=== PATIENT | male | born 1955 | race Caucasian/White ===

== ENCOUNTER 2023-12-13 07:59 | Outpatient (OUT) | payer MEDICARE, SELFPAY ==
--- NOTE | 2023-12-13 08:55 | ECG_ITS ---
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
[2023-12-13 09:32] LABS: Basophils Absolute Auto 0.1 10^3/uL (0.0-0.1); Basophils Percent Auto 0.9 % (0.2-2.0); Eosinophils Absolute Auto 0.3 10^3/uL (0.0-0.7); Eosinophils Percent Auto 4.5 % (0.9-7.0); Hematocrit 46.5 % (42.0-54.0); Immature Granulocytes Abs Auto 0.02 10^3/uL (0.00-0.03); Immature Granulocytes Pct Auto 0.3 % (0.0-0.5); Lymphocytes Absolute Auto 1.1 10^3/uL (1.2-3.8); Lymphocytes Percent Auto 15.9 % (20.5-60.0); Mean Corpuscular HGB Conc 34.4 g/dL (29.9-35.2); Mean Corpuscular Hemoglobin 32.3 pg (25.9-34.0); Mean Corpuscular Volume 93.9 fL (80.0-94.0); Mean Platelet Volume 9.1 fL (9.5-13.5); Monocytes Absolute Auto 0.6 10^3/uL (0.3-0.8); Monocytes Percent Auto 8.7 % (1.7-12.0); Neutrophils Absolute Auto 4.8 10^3/uL (1.4-6.5); Neutrophils Percent Auto 69.7 % (43.0-75.0); Platelet Count 280 10^3/uL (150-450); Red Blood Count 4.95 10^6/uL (4.70-6.10); Red Cell Distribution Width 13.2 % (11.0-15.0); White Blood Count 6.9 10^3/uL (4.0-11.0)
[2023-12-13 09:51] LABS: Anion Gap 11.9; Calcium 9.3 mg/dL (8.5-10.1); Carbon Dioxide 28.1 mmol/L (21.0-32.0); Chloride 106 mmol/L (98-107); Estimated GFR (African America >60 (>=60); Estimated GFR (Non-African Ame >60 (>=60); Glucose 103 mg/dL (74-106); Sodium 142 mmol/L (136-145)
== END 2023-12-13 08:00 | disposition home or self-care (01) ==
LOC: PST 08:05
PROVIDERS: Anesthesiology; PCP Nurse Practitioner; Visit Provider Otolaryngology
DX: Z01.810 Encounter for preprocedural cardiovascular examination (principal); Z01.812 Encounter for preprocedural laboratory examination; H69.91 Unspecified Eustachian tube disorder, right ear
CPT/HCPCS: 36415; 80048; 85025; 93005

== ENCOUNTER 2023-12-31 10:54 | Day surgery (SDC) | payer MEDICARE, SELFPAY ==
[2023-12-13 08:58] VITALS: BP 128/87; PULSE 63; TEMP 36.2; O2SAT 96; BMI 27.2
[2023-12-31] VITALS (10 sets, daily range): BP systolic 96–134; BP diastolic 60–93; PULSE 60–76; TEMP 36.1–36.3; O2SAT 91–97; BMI 27.1
--- NOTE | 2023-12-31 | OP_ITS ---
OPERATION DATE: 12/31/2023 PRIMARY CARE PROVIDER: Alicia Bundy CNP SURGEON: Kristal Smith M.D. PREOPERATIVE DIAGNOSIS: Right eustachian tube dysfunction. POSTOPERATIVE DIAGNOSIS: Right eustachian tube dysfunction. PROCEDURE: Right myringotomy and tube with microdissection, placement of a T- tube. ANESTHESIA: General LMA. COMPLICATIONS: None. FINDINGS: Right serous effusion. INDICATIONS: This 68-year-old man presented with otitis media with effusion, unresponsive to aggressive medical management. PROCEDURE: Patient identified in the holding area and taken back to the OR where he was placed in the supine position. After induction of general anesthesia by LMA, the right ear was approached with the otomicroscope. Cerumen was cleaned from the canal using a cerumen curette and an anterior radial myringotomy was performed. A modified Royce?s T-tube was folded and inserted through the myringotomy and opened in the middle ear using microdissection. Patient was then awakened and taken to the recovery room in good condition. CECILIA
--- OUTSIDE RECORDS SUMMARY | 2023-12-31 11:07 | XMS_ITS | CCD ---
Author Organization [facility] Care Team Providers Care Wet Process Miller Head Assistant Name Role Phone PAVLOCK, MAX Unavailable Unavailable PAVLOCK, MAX Unavailable Unavailable MISC, DOCTOR Unavailable Unavailable PAVLOCK, MAX Unavailable Unavailable PAVLOCK, MAX Unavailable Unavailable PAVLOCK, MAX Unavailable Unavailable PAVLOCK, MAX Unavailable Unavailable Unavailable Primary Care Provider UnavailErica Boateng Primary Care Provider ERICA BUNDY Primary Care Unavailable SARAH BARAJAS Attending Unavailable SARAH BARAJAS Admitting Unavailable ERICA BUNDY Primary Care Unavailable SARAH BARAJAS Attending Unavailable KARL, SARAH T Admitting Unavailable COLE ZAFAR Attending Unavailable COLE ZAFAR Admitting Unavailable KARL, SARAH Pau Admitting Unavailable ERICA BUNDY Primary Care Unavailable KARL, SARAH T Attending Unavailable DENIS LOJA Referring Unavailable ERICA BUNDY Primary Care Unavailable DENIS LOJA Referring Unavailable ERICA BUNDY Primary Care Unavailable DENIS LOJA Referring Unavailable ERICA BUNDY Primary Care Unavailable MD Bianca James Attending Provider Bianca James Unavailable Gregor QUOTER-Erica SELBY Primary Care Provid er ERICA BUNDY Attending Unavailable ERICA BUNDY Referring Unavailable ERICA BUNDY Primary Care Unavailable FREDERIC YU Attending Unavailable ERICA BUNDY Referring Unavailable KRISTAL AKINS Attending Unavailable KRISTAL AKINS Attending Unavailable Bianca James Admitting Unavailable Bianca James Attending Unavailable Medications Current Medications Medication Drug Class(es) Dates Sig (Normalized) Sig (Original) acetaminophen 500 mg oral tablet (8 sources) acetaminophen (T YLENOL) 500 mg tablet Take 1 tablet (500 mg total) by mouth. 0 Active take 2 tablets by [facility] every six hours as needed acetaminophen (TYLENOL) 500 MG tablet Ta ke 500 mg by mouth every 6 hours as needed for Pain (1-2 TABLETS) 0 Active acetaminophen 325 mg / oxyCODONE hydrochloride 5 mg oral tablet (1 source) Opioid Agonist Start: 01-26-2020 oxyCODONE-acetaminophen (PERCOCET) 5-325 MG per tablet 1 tablet amLODIPine 5 mg oral tablet (5 sources) Dihydropyridine Calcium Channel Quynh Start: 05-14-2023 End: 10-01-2023 take 1 tablet by mouth in the morning amLODIPine (NORVASC) 5 mg tablet Indications: Essential hypertension Take 1 tablet (5 mg total) by mouth in the morning. 90 tablet 1 10/01/2023 Active ascorbic acid 60 mg / beta carotene 5000 unt / copper sulfate 40 mg / dl-alpha tocopheryl acetate 30 unt / sodium selenite 0.04 mg / zinc oxide 40 mg oral tablet (4 sources) Vitamin C take 1 tablet by mouth once daily Multiple Vitamins-Minerals (THERAPEUTIC MULTIVITAMIN-MINERALS) tablet Take 1 tablet by mouth daily MEN'S FORMULA 0 Active ascorbic acid 113 mg / beta carotene 7160 mg / cuprous oxide 0.4 mg / dl-alpha tocopheryl acetate 100 unt / zinc oxide 17.4 mg oral tablet (2 sources) Vitamin C PreserVision ARE DS - as directed Orally Active calcium chloride 0.0014 meq/ml / potassium chloride 0.004 meq/ml / sodium chloride 0.103 meq/ml / sodium lactate 0.028 meq/ml injectable solution (5 sources) Start: 06-09-2020 lactated ringers infusion Start: 01-26-2020 lactated ringe rs infusion Start: 12-10-2019 lactated ringe rs infusion Start: 11-03-2019 End: 11-03-2019 lactated ringers infusion carboxymethylcellulose sodiu m 10 mg/ml ophthalmic solution (8 sources) carboxymethylcel lulose sodium (ARTIFICIAL TEARS, CMC,) 1 % drops Instill 1 drop to eye. 0 Active Carboxymethylcel lulose Sodium (ARTIFICIAL TEARS OP) Apply 1 drop to eye as needed BILATERAL EYES 0 Active Diclofenac (2 sources) Nonsteroidal Anti-inflammatory Drug Start: 05-15-2023 Voltaren 1 % apply 1-2 grams to affected area Externally twice a day for 30 days May, Active 1 ml diphenhydrAMINE hydrochloride 50 mg/ml cartridge (1 source) Histamine-1 Receptor Antagonist Start: 01-26-2020 End: 01-26-2020 diphenhydrAMINE (BENADRYL) injection 12.5 mg 2 ml fentaNYL 0.05 mg/ml injection (7 sources) Opioid Agonist Start: 06-09-2020 fentaNYL (SUBLIMAZE) injection 25 mcg Start: 01-26-2020 fentaNYL (SUBL IMAZE) injection 25 mcg Start: 01-26-2020 fentaNYL (SUBL IMAZE) injection 50 mcg Start: 12-10-2019 fentaNYL (SUBL IMAZE) injection 50 mcg Start: 12-10-2019 fentaNYL (SUBL IMAZE) injection 25 mcg fluticasone propionate 0.05 mg/actuat metered dose nasal spray (3 sources) Corticosteroid Start: 08-27-2021 End: 10-01-2023 take 2 spray(s) nasal route once daily fluticasone propionate (FLONASE) 50 mcg/actuation nasal spray Indications: Allergic rhinitis, unspecified seasonality, unspecified trigger SPRAY 2 SPRAYS INTO EACH NOSTRIL EVERY DAY 16 mL 12 10/01/2023 Active 1 ml hydrALAZINE hydrochloride 20 mg/ml injection (1 source) Arteriolar Vasodilator Start: 01-26-2020 hydrALAZINE (APRESOLINE) injection 5 mg hydroCHLOROthiazide 12.5 mg / lisinopril 20 mg oral tablet (12 sources) Thiazide Diuretic, Angiotensin Converting Enzyme Inhibitor Start: 05-14-2023 End: 10-01-2023 take 1 tablet by mouth once daily lisinopril-hydroC HLOROthiazide (PRINZIDE,ZESTORE TIC) 20-12.5 mg per tablet Indications: Essential hypertension TAKE 1 TABLET BY MOUTH EVERY DAY 90 tablet 1 10/01/2023 Active Start: 09-17-2019 take 1 tablet by [place]orence th once daily lisinopril-hydroCHLOROthiazide (PRINZIDE;ZESTORETIC) 10-12.5 MG per tablet Take 1 tablet by mouth daily 0 09/17/2019 Active 4 ml labetalol hydrochloride 5 mg/ml cartridge (1 source) beta-Adrenergic Quynh Start: 01-26-2020 labetalol (NORMODYNE;TRANDATE) injection 5 mg 10 ml lidocaine hydrochloride 10 mg/ml injection (1 source) Antiarrhythmic, Amide Local Anesthetic Start: 06-09-2020 End: 06-09-2020 lidocaine PF 1 % injection 1 mL 1 ml meperidine hydrochloride 50 mg/ml injection (1 source) Opioid Agonist Start: 12-10-2019 meperidine (DEMEROL) injection 12.5 mg 2 ml midazolam 1 mg/ml injection (2 sources) Benzodiazepine Start: 06-09-2020 midazolam PF (VERSED) injection 1 mg Start: 11-03-2019 End: 11-03-2019 midazolam (VERSED) injection 2 mg Multiple Vitamins-Minerals (THERAPEUTIC MULTIVITAMIN-MINERALS) tablet (2 sources) take 1 tablet by mouth once daily Multiple Vitamins-Minerals (THERAPEUTIC MULTIVITAMIN-MINERALS) tablet Take 1 tablet by mouth daily MEN'S FORMULA 0 Active multivit with minerals/lutein (MULTIVITAMIN 50 PLUS ORAL) (2 sources) multivit with minerals/lutein (MULTIVITAMIN 50 PLUS ORAL) Take 1 tablet by mouth. 0 Active NONFORMULARY (6 sources) take 1 tablet by mouth once daily at lunch NONFORMULARY Take 1 tablet by mouth Daily with lunch EYE PROMISE, EYE SUPPLEMENT 0 Active nystatin 100 unt/mg / triamcinolone acetonide 0.001 mg/mg topical ointment (3 sources) Polyene Antifungal, Corticosteroid Star t: 04-08 End: 09-06 nystatin-triamcinolone (MYCOLOG II) ointment Indications: Fungal skin infection Apply 1 Application topically in the morning and 1 Application before bedtime. 30 g 1 10/01/2023 Active 2 ml ondansetron 2 mg/ml injection (2 sources) Serotonin-3 Receptor Antagonist Star t: 01-06 20 End: 01-06 ondansetron (ZOFRAN) injection 4 mg Start: 12-10-2019 End: 12-10-2019 ondansetron (ZOFRAN) injecti on 4 mg One A Day Mens VitaCraves - (2 sources) One A Day Mens VitaCraves - as directed Orally Active 1 ml promethazine hydrochloride 25 mg/ml injection (1 source) Phenothiazine Start: 07-21-20 20 End: 01-26-20 20 promethazine (PHENERGAN) injection 6.25 mg simvastatin 20 mg oral tablet (12 sources) HMG-CoA Reductase Inhibitor Start: 09-17-19 20 End: 10-01-19 24 take 1 tablet by mouth in the morning simvastatin (ZOCOR) 20 mg tablet Indications: Mixed hyperlipidemia Take 1 tablet (20 mg total) by mouth in the morning. 90 tablet 2 10/01/2023 Active 3 ml sodium chloride 9 mg/ml injection (5 sources) Start: 06-09-20 20 sodium chloride flush 0.9 % injection 10 mL Start: 01-26-2020 End: 01-26-2020 0.9 % sodium chloride bolus Start: 11-03-2019 sodium chlorid e flush 0.9 % injection 10 mL vit C,P-Yk-lskhp-lutein-zeax an (PRESERVISION AREDS-2) 250-90-40-1 mg capsule (2 sources) vit C,E-Zn-coppr -lutein-zeaxan (PRESERVISION AREDS-2) 250-90-40-1 mg capsule Take by mouth in the morning and at bedtime. 0 Active Completed/Discontinued Medications Medication Drug Class(es) Dates Sig (Normalized) Sig (Original) balanced salts plus (BSS) 500 mL (1 source) Start: 06-09-2020 End: 06-09-2020 balanced salts plus (BSS) 500 mL Bupivacaine / Lidocaine (1 source) Antiarrhythmic, Amide Local Anesthetic Start: 06-09-2020 End: 06-09-2020 bupivacaine (PF) (MARCAINE) 2.5 mL, lidocaine PF 2 % 2.5 mL cefTAZidime 1000 mg injection (1 source) Cephalosporin Antibacterial Start: 06-09-2020 End: 06-09-2020 cefTAZidime (FORTAZ) injection cyclopentolate hydrochloride 20 mg/ml ophthalmic solution (3 sources) Start: 06-09-2020 End: 06-09-2020 cyclopentolate (CYCLOGYL) 2 % ophthalmic solution Start: 06-09-2020 End: 06-09-2020 cyclopentolate (CYCLOGYL) 2 % ophthalmic solution 1 drop Start: 11-03-2019 End: 11-03-2019 cyclopentolate (CYCLOGYL) 1 % ophthalmic solution 1 drop dexamethasone 1 mg/ml / tobramycin 3 mg/ml ophthalmic suspension (2 sources) Aminoglycoside Antibacterial, Corticosteroid Start: 06-09-2020 End: 06-09-2020 tobramycin-dexamethasone (TOBRADEX) ophthalmic suspension 1 drop Start: 01-26-2020 End: 01-26-2020 tobramycin-dexamethasone (TO BRADEX) ophthalmic suspension 1 drop gentamicin 3 mg/ml / prednisoLONE acetate 10 mg/ml ophthalmic suspension (2 sources) Corticosteroid Start: 12-10-2019 End: 12-10-2019 gentamicin-prednisoLONE 0.3- 1 % ophthalmic drops 1 drop Start: 11-03-2019 End: 11-03-2019 gentamicin-prednisoLONE 0.3- 1 % ophthalmic drops 1 drop phenylephrine hydrochloride 100 mg/ml ophthalmic solution (4 sources) alpha-1 Adrenergic Agonist Start: 06-09-2020 End: 06-09-2020 phenylephrine (ANALILIA-SYNEPHRINE) 10 % ophthalmic solution 1 drop Start: 01-26-2020 End: 01-26-2020 phenylephrine (ANALILIA-SYNEPHRIN E) 10 % ophthalmic solution 1 drop Start: 12-10-2019 End: 12-10-2019 phenylephrine (ANLAILIA-SYNEPHRIN E) 10 % ophthalmic solution 1 drop Start: 11-03-2019 End: 11-03-2019 phenylephrine (MYDFRIN) 2.5 % ophthalmic solution 1 drop tropicamide 10 mg/ml ophthalmic solution (2 sources) Anticholinergic Start: 01-26-2020 End: 01-26-2020 tropicamide (MYDRIACYL) 1 % ophthalmic solution 1 drop Start: 12-10-2019 End: 12-10-2019 tropicamide (MYDRIACYL) 1 % ophthalmic solution 1 drop Problems Active Problems Problem Classification Problem Date Documented Date Episodic/Chronic Conduction disorders (2 sources) Sinus node dysfunction; Translations: [Other specified heart block] Onset: 11-03-2020 11-03-2020 Chronic Disorders of lipid metabolism (7 sources) Hyperlipidemia, unspecified; Translations: [Mixed hyperlipidemia] Onset: 11-04-2017 03-19-2019 Chronic Esophageal disorders (2 sources) Gastroesophageal reflux disease without esophagitis; Translations: [Gastro-esophageal reflux disease without esophagitis] Onset: 06-16-2018 06-16-2018 Chronic Essential hypertension (3 sources) Essential hypertension; Translations: [Essential (primary) hypertension] Onset: 06-09-2018 06-09-2018 Chronic Mycoses (1 source) Dermal mycosis; 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, unspecified] 10-01-2023 Episodic Osteoarthritis (4 sources) Arthritis of right wrist; Translations: [Primary osteoarthritis, right wrist] Chronic Other ear and sense organ disorders (1 source) Hearing finding; Translations: [Other specified hearing loss, bilateral] 07-22-2023 Chronic Other nervous system disorders (2 sources) Carpal tunnel syndrome; Translations: [Carpal tunnel syndrome, unspecified upper limb] Chronic Other upper respiratory disease (1 source) Allergic rhinitis; Translations: [Allergic rhinitis, unspecified] 10-01-2023 Chronic Unclassified (1 source) Encounter for screening for malignant neoplasm of prostate; Translations: [ENC SCREEN MALIG NEOPLASM PROSTATE] Onset: 11-07-2017 Episodic Unclassified (1 source) Patient encounter status; Translations: [Preoperative testing] Unclassified (1 source) Annual Exam Onset: 11-13-2023 Past or Other Problems Problem Classification Problem Date Documented Da te Episodic/Chronic Mood disorders (2 sources) Mood disorders Onset: 05-14-2023 05-14-2023 Other eye disorders (10 sources) Vitreous hemorrhage, right eye; Translations: [Hemorrhage of right vitreous body] Onset: 11-03-2019 Resolved: 2022 11-03-2019 Chronic Other non-traumatic joint disorders (3 sources) Pain in right wrist; Translations: [Pain in right wrist] Onset: 05-15-2023 Episodic Other nutritional; endocrine; and metabolic disorders (2 sources) Body mass index 25-29 - overweight; Translations: [Overweight] Onset: 09-17-2019 09-17-2019 Episodic Retinal detachments; defects; vascular occlusion; and retinopathy (19 sources) Retinal detachment with retinal defect; Translations: [Traction retinal detachment involving macula] Onset: 11-03-2019 11-03-2019 Episodic Unclassified (2 sources) Onset: 05-14-2023 05-14-2023 Results Test Name Value Interpretation Reference Range Facility XR wrist RT min 3V*on 2022 XR wrist RT min 3V* [facility] [place] [address] [place] [id number] XRay Report Signed Patient: Uriel Newton MR#: [id number] : 1955 Acct:[id number] Age/Sex: 67 / M ADM Date: 05/15/23 Loc: SOXD Room: Type: [facility] Attending Dr: Bianca James MD Copies to: Bianca James MD Ordering Provider: Bianca James MD Date of Service: 05/15/23 XR/XR wrist RT min 3V*: M25.531 4 views right wrist plain film COMPARISON: None HISTORY: Status post right wrist and numbness. Radiation into the fingers. Decreased adequate strength ACUTE FINDINGS: None DEGENERATIVE CHANGE: The distal radius and scaphoid joint space narrowing. Potential scapholunate dissociation. Narrowing of the capitate and lunate articulation. Potential DISI deformity. Limited lateral view widening of distal radial clear space. SOFT TISSUE FINDINGS: Unremarkable JOINT EFFUSION: None POSTOP CHANGES: None BONE MINERALIZATION: Adequate XR/XR wrist RT min 3V* IMPRESSION: Radius and scaphoid joint space narrowing with suspected scapholunate dissociation. Capitate and lunate joint space narrowing. potential DISI deformity. Widening of the distal radial ulnar articulation. Impression dictated by: Matthias Polanco M.D.05/15/2023 7:24 PM Dictation Location: [place] [address] Transcribed By: [facility] 05/15/231923 Dictated By: Matthias Polanco DO 05/15/231913 Signed By: 05/15/231923 Normal [facility] COVID-19 Ambulatoryon 2019 SARS-CoV-2, JOSE Not Detected Not Detected [place], [place] Comment on above: (NOTE) This nucleic acid amplification test was developed and its performance characteristics determined by [employer]. Nucleic acid amplification tests include PCR and TMA. This test has not been FDA cleared or approved. This test has been authorized by FDA under an Emergency Use Authorization (EUA). This test is only authorized for the duration of time the declaration that circumstances exist justifying the authorization of the emergency use of in vitro diagnostic tests for detection of SARS-CoV-2 virus and/or diagnosis of COVID-19 infection under section 564(b)(1) of the Act, 21 U.S.C. 360bbb-3(b) (1), unless the authorization is terminated or revoked sooner. When diagnostic testing is negative, the possibility of a false negative result should be considered in the context of a patient's recent exposures and the presence of clinical signs and symptoms consistent with COVID-19. An individual without symptoms of COVID- 19 and who is not shedding SARS-CoV-2 virus would expect to have a negative (not detected) result in this assay. Performed At: [facility] [address] [facility] [place] [id number] Emily Arias MD Ph:[phone] Creatinine W/GFR Point of Ca reon 06-09-2020 Creatinine [Mass/Vol] 0.96 mg/dL 0.51 - 1.19 mg/dL [place], [place] GFR Non- >60 >60 mL/min [place] GFR/1.73 sq M predicted among non-blacks MDRD (S/P/Bld) [Vol rate/Area] mL/min/{1.73_m2} >60 mL/min [place] GFR/1.73 sq M predicted among non-blacks MDRD (S/P/Bld) [Vol rate/Area] [place], [place] Comment on above: Average GFR for 60-6 9 years old: 85 mL/min/1.73sq m Chronic Kidney Disease: <60 mL/min/1.73sq m Kidney failure: <15 mL/min/1.73sq m eGFR calculated using average adult body mass. Additional eGFR calculator available at: http://www.[employer].EndorphMe/multiple_crcl_2012.htm POCT Glucoseon 06-09-2020 Glucose [Mass/Vol] 105 mg/dL High 74 - 100 mg/dL [place], [place] Interpretation and review of laboratory results Abnormal [place] [id number] 06-09-2020 SARS-CoV-2 Not Detected Normal Not Detected [facility] Comment on above: Result Comment: (NOT E) This nucleic acid amplification test was developed and its performance characteristics determined by [employer]. Nucleic acid amplification tests include PCR and TMA. This test has not been FDA cleared or approved. This test has been authorized by FDA under an Emergency Use Authorization (EUA). This test is only authorized for the duration of time the declaration that circumstances exist justifying the authorization of the emergency use of in vitro diagnostic tests for detection of SARS-CoV-2 virus and/or diagnosis of COVID-19 infection under section 564(b)(1) of the Act, 21 U.S.C. 360bbb-3(b) (1), unless the authorization is terminated or revoked sooner. When diagnostic testing is negative, the possibility of a false negative result should be considered in the context of a patient's recent exposures and the presence of clinical signs and symptoms consistent with COVID-19. An individual without symptoms of COVID- 19 and who is not shedding SARS-CoV-2 virus would expect to have a negative (not detected) result in this assay. Performed At: [facility] [address] [facility] [place] [id number] Emily Arias MD Ph:[phone] Performed By: #### A COV #### [facility] [address] [place] [address] Sail Repairer: Antoni Escobar MD Creatinine W/GFR Point of Ca reon 01-26-2020 Creatinine [Mass/Vol] 0.96 mg/dL 0.51 - 1.19 mg/dL [place], [place] GFR Non- >60 >60 mL/min [place] GFR/1.73 sq M predicted among non-blacks MDRD (S/P/Bld) [Vol rate/Area] mL/min/{1.73_m2} >60 mL/min [place] GFR/1.73 sq M predicted among non-blacks MDRD (S/P/Bld) [Vol rate/Area] [place], [place] Comment on above: Average GFR for 60-6 9 years old: 85 mL/min/1.73sq m Chronic Kidney Disease: <60 mL/min/1.73sq m Kidney failure: <15 mL/min/1.73sq m eGFR calculated using average adult body mass. Additional eGFR calculator available at: http://www.Xamplified.EndorphMe/multiple_crcl_2012.htm OPERATIVE REPORTon 0 OPERATIVE REPORT [address] [id number] OPERATIVE REPORT PATIENT NAME: URIEL NEWTON : 1955 MED REC NO: [id number] ROOM: ACCOUNT NO: [id number] ADMIT DATE: 01/26/2020 PROVIDER: Sarah Barajas DATE OF PROCEDURE: 01/26/2020 PREOPERATIVE DIAGNOSES: 1. 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 2. Severe macular pucker, right eye. 3. Advancing cataract, right eye. POSTOPERATIVE DIAGNOSES: 1. 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 2. Severe macular pucker, right eye. 3. Advancing cataract, right eye. PROCEDURES: Pars plana vitrectomy with extensive membrane peeling, retinotomies, endolaser, and silicone; right eye. ANESTHESIA: Monitored. SURGEON: Sarah Barajas MD REASON FOR OPERATION: The patient is a 64-year-old gentleman with recurrent retinal detachment due to proliferative vitreoretinopathy. The macula has detached. He has had 2 previous operations with macula-off, one 3 months ago and another approximately 6 weeks ago. He has elected to undergo surgery in the hopes of stabilizing his vision. He understands his eventual visual recovery will be limited and will take 6-12 months. He understands the risks include, but are not limited to, bleeding, infection, and recurrent retinal detachment. He understands he will need cataract surgery at some point in the future. DESCRIPTION OF PROCEDURE: The patient was brought to the operating room in good condition. He was administered local anesthetic and prepped and draped in the usual fashion. 23-gauge vitrectomy trocars were placed through the pars plana in the usual quadrants. An inferotemporal trocar was not placed, so there were only 2 trocars. Light pipe and forceps were placed in the eye. There was a dense macular pucker, and this was peeled without difficulty. There were a few small epiretinal membranes in the midperiphery, and these were peeled. Scleral depression showed there was anterior traction with a hole at 5 o'clock posterior to the vitreous base. This anterior traction was present from 4 o'clock around to 7 o'clock. These areas were diathermized, and a retinotomy was created with the ocutome, basically removing all the area of traction. There was an area at 6 o'clock that was still attached with laser, and this was not peeled. A retinotomy was created below the optic disc with intraocular diathermy. Subretinal fluid was aspirated with silicone-tipped extrusion. Silicone was then placed into the eye to reestablish normal intraocular pressure. Extrusion was used to remove any fluid over the optic nerve head. This reattached the retina nicely. Endolaser was placed around all retinotomies. Endolaser was placed behind previous laser from 2 o'clock around to 10 o'clock. At least two rows of laser were placed in these areas. There were moderate pigment changes in the macula, but no residual membrane seen. The trocars were removed, and the sites were closed with interrupted 7-0 Vicryl. 50 mg ceftazidime were injected sub-Tenon's in the inferonasal quadrant. The eye was patched in the usual fashion. The patient was taken to the recovery room in good condition. SARAH BARAJAS JACQUELINE/[id number] Doc#: [id number] CC: Normal [facility] POCT Glucoseon 01-26-2020 Glucose [Mass/Vol] 104 mg/dL High 74 - 100 mg/dL [place], [place] Interpretation and review of laboratory results Abnormal [place], [place] COVID-19on 01-23-2020 SARS-CoV-2 Not Detected Not Detected [place], [place] Comment on above: The specimen is NEGATIVE for SARS-CoV-2, the novel coronavirus associated with COVID-19. A negative result does not rule out COVID-19. This test has been authorized by the FDA under an Emergency Use Authorization (EUA) for use by authorized laboratories. Fact sheet for Healthcare Providers: https://www.fda.gov/media/788913/download Fact sheet for Patients: https://www.fda.gov/media/095005/download METHODOLOGY: RT[facility]PCR [facility] [place] [place] SARS-CoV-2, Rapid [facility] [place] Source .NASOPHARYNGEAL SWAB [place], [place] [id number] 01-23-2020 SARS-CoV-2 Not Detected Normal [facility] Comment on above: Result Comment: The specimen is NEGATIVE for SARS-CoV-2, the novel coronavirus associated with COVID-19. A negative result does not rule out COVID-19. This test has been authorized by the FDA under an Emergency Use Authorization (EUA) for use by authorized laboratories. Fact sheet for Healthcare Providers: https://www.fda.gov/media/139282/download Fact sheet for Patients: https://www.fda.gov/media/940528/download METHODOLOGY: RT-PCR Performed By: #### C OVID #### [address] [address] Sail Repairer: Marbin Sellers MD [address] [place] [address] Sail Repairer: Royce Hernandez MD SARS-CoV-2,Rapid [facility] Comment on above: Performed By: #### C OVID #### [address] [address] Sail Repairer: Marbin Sellers MD [address] [place], [facility] Sail Repairer: Royce Hernandez MD SARS-CoV-2 [facility] Comment on above: Performed By: #### C OVID #### [address] [address] Sail Repairer: Marbin Sellers MD [address] [place] [address] Sail Repairer: Royce Hernandez MD [id number] 01-22-2020 SARS-CoV-2 Source .NASOPHARYNGEAL SWAB [facility] Comment on above: Performed By: #### C OVID #### [address] [address] Sail Repairer: Marbin Sellers MD [address] [place] [address] Sail Repairer: Royce Hernandez MD OPERATIVE REPORTon 0 OPERATIVE REPORT [address] [address] OPERATIVE REPORT PATIENT NAME: URIEL NEWTON : 1955 MED REC NO: [id number] ROOM: ACCOUNT NO: [id number] ADMIT DATE: 12/10/2019 PROVIDER: Sarah Barajas DATE OF PROCEDURE: 12/10/2019 PREOPERATIVE DIAGNOSES: Traction recurrent retinal detachment with proliferative vitreoretinopathy and macula-off, right eye. 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 PROCEDURES: Pars plana vitrectomy with membrane peeling, gas-fluid exchange, endolaser, and silicone; right eye. ANESTHESIA: Monitored. SURGEON: Sarah Barajas MD REASON FOR OPERATION: The patient is a 64-year-old gentleman who had surgery for retinal detachment in the right eye approximately one month ago. He subsequently developed a very large temporal hole and retinal detachment, which involves the macula. Anterior hyaloidal proliferation is present. He has elected to undergo surgery in the hopes of recovering partial vision. He understands the risks include, but are not limited to, bleeding, infection, and recurrent retinal detachment. He understands he will develop a significant cataract within one year. DESCRIPTION OF PROCEDURE: The patient was brought to the operating room in good condition. He was administered local anesthetic and prepped and draped in the usual fashion. 25-gauge vitrectomy trocars were placed through the pars plana in the usual quadrants. The infusion was placed through the inferotemporal site. Light pipe and ocutome were placed through the superior sites. Vitreous had previously been removed. There was minimal vitreous inferiorly. Scleral depression revealed anterior hyaloidal proliferation. There were no posterior fixed folds. There was a very large retinal tear at 9 o'clock which extended almost to the posterior pole. The old drain site below the posterior pole had opened up and was detached in this area. The macula was off. Scleral depression was used to remove the anterior hyaloidal proliferation and the vitreous in this area in the inferior 180 degrees. Several small retinotomies were made along the posterior ridge of the peripheral traction. Minimal bleeding occurred, and it was stopped with intraocular diathermy. An air-fluid exchange was done, which flattened the retina nicely. Endolaser was placed around the old retinotomy and all retinal tears. Endolaser was placed partially through previous laser, which had detached and two rows behind laser in all clock hours. Residual fluid was aspirated from over the optic nerve head. Silicone was placed in the eye until it filled the posterior segment. Trocars were removed and the sites closed with 7-0 Vicryl. 50 mg ceftazidime were injected sub-Tenon's in the inferonasal quadrant. The eye was patched in the usual fashion. The patient was taken to the recovery room in good condition. SARAH BARAJAS JACQUELINE/Jessica_[email or web address] Doc#: [id number] CC: Normal [facility] COVID-19on 12-08-2019 SARS-CoV-2 Not Detected Not Detected [place], [place] Comment on above: The specimen is NEGATIVE for SARS-CoV-2, the novel coronavirus associated with COVID-19. A negative result does not rule out COVID-19. This test has been authorized by the FDA under an Emergency Use Authorization (EUA) for use by authorized laboratories. Fact sheet for Healthcare Providers: https://www.fda.gov/media/214222/download Fact sheet for Patients: https://www.fda.gov/media/982037/download METHODOLOGY: RT-PCR SARS-CoV-2, PCR [place], [place] SARS-CoV-2, Rapid [place], [place] Source .NASOPHARYNGEAL SWAB [place], [place] ITCT-UeM-2gx 12-08-2019 SARS-CoV-2,Rapid Normal [facility] Comment on above: Performed By: #### C OVID #### [facility] [address] [place] [address] Sail Repairer: Marbin Sellers MD [facility] [address] [place] [address] Sail Repairer: Royce Hernandez MD SARS-CoV-2 Not Detected Normal [facility] Comment on above: Result Comment: The specimen is NEGATIVE for SARS-CoV-2, the novel coronavirus associated with COVID-19. A negative result does not rule out COVID-19. This test has been authorized by the FDA under an Emergency Use Authorization (EUA) for use by authorized laboratories. Fact sheet for Healthcare Providers: https://www.fda.gov/media/866550/download Fact sheet for Patients: https://www.fda.gov/media/426865/download METHODOLOGY: RT-PCR Performed By: #### C OVID #### [address] [address] Sail Repairer: Marbin Sellers MD [address] [place] [address] Sail Repairer: Royce Hernandez MD SARS-CoV-2 [facility] Comment on above: Performed By: #### C OVID #### [address] [address] Sail Repairer: Marbin Sellers MD [address] [place] [address] Sail Repairer: Royce Hernandez MD [id number] 12-07-2019 SARS-CoV-2 Source .NASOPHARYNGEAL SWAB [facility] Comment on above: Performed By: #### C OVID #### [address] [address] Sail Repairer: Marbin Sellers MD [facility] [address] [place] [address] [place] [address] Sail Repairer: Royce Hernandez MD Creatinine W/GFR Point of Ca reon 11-03-2019 Creatinine [Mass/Vol] 0.97 mg/dL 0.51 - 1.19 mg/dL [place], [place] GFR Non- >60 >60 mL/min [place] GFR/1.73 sq M predicted among non-blacks MDRD (S/P/Bld) [Vol rate/Area] mL/min/{1.73_m2} >60 mL/min [place] GFR/1.73 sq M predicted among non-blacks MDRD (S/P/Bld) [Vol rate/Area] [place], [place] Comment on above: Average GFR for 60-6 9 years old: 85 mL/min/1.73sq m Chronic Kidney Disease: <60 mL/min/1.73sq m Kidney failure: <15 mL/min/1.73sq m eGFR calculated using average adult body mass. Additional eGFR calculator available at: http://www.Shopventory/multiple_crcl_2012.htm OPERATIVE REPORTon 0 OPERATIVE REPORT [address] [address] OPERATIVE REPORT PATIENT NAME: URIEL NEWTON : 1955 MED REC NO: [id number] ROOM: ACCOUNT NO: [id number] ADMIT DATE: 11/03/2019 PROVIDER: Cole Zafar DATE OF PROCEDURE: 11/03/2019 PREOPERATIVE DIAGNOSES: Macula-off retinal detachment, right eye; subretinal hemorrhage, right eye; single retinal break, right eye. POSTOPERATIVE DIAGNOSES: Macula-off retinal detachment, right eye; subretinal hemorrhage, right eye; single retinal break, right eye. SURGEON: Cole Zafar MD ANESTHESIA: Local monitored anesthesia care. COMPLICATIONS: None. SURGERIES PERFORMED: 1. Pars plana vitrectomy. 2. Subretinal blood removal, right eye. 3. Fluid-air exchange. 4. Air-gas exchange with 16% C3F8. 5. Endolaser photocoagulation treatment. BLOOD LOSS: Minimal. JUSTIFICATION: This very pleasant 64-year-old male was seen by Dr. Sarah Barajas at the emergency room at [facility] approximately 6 weeks prior to this admission and found to have a vitreous hemorrhage and a PVD. He was seen in the [place] office a week later by Dr. Zafar and found to have a PVD, 20/40 vision, and a moderate vitreous hemorrhage. Scleral indentation/depression and peripheral retinal exam with a 3-mirror lens showed no evidence of peripheral retinal breaks, tears, holes, or detachment. The patient called back a week later stating his floaters had not improved but that he was not experiencing any type of curtain effect across his vision or any kind of photopsias. The patient then returned yesterday, 11/02/2019, with hand motions vision decreased from 20/40 and a few-day history of a curtain having developed across the vision in the right eye. The patient had a retinal tear in this temporal periphery at the 9 o'clock meridian and had a vitreous hemorrhage and had evidence of a submacular hemorrhage as well. The patient was apprised of the risks, benefits, and alternatives to therapy and signed his consent. He was taken to the operating room, where IV sedation was given, and a retrobulbar block was applied with a 50:50 mixture of Marcaine and lidocaine. After good akinesia and anesthesia were established, the patient was prepped and draped in the usual sterile fashion. A wire lid speculum was used to open up the lids of the right eye. The patient had 23-gauge trocars placed in the temporal and superonasal quadrants, 4 mm posterior to the limbus. The infusion cannula was placed in the inferotemporal trocar site and directly visually inspected prior to being turned on. Core vitrectomy was performed. The dense vitreous hemorrhage inferiorly was trimmed. Scleral indentation and depression by the assistant elementary teacher facilitated removing as much of the vitreous as possible. After the vitreous hemorrhage had been removed, it was clear that there was a mobile submacular hemorrhage. The retinal break in the temporal periphery was marked with diathermy, and then a diathermy bobby was made superior to the arcade. A flexible-tipped extrusion needle was used to remove much of the subretinal blood. There had been some that had migrated down below the inferior arcade, so another small retinotomy was made, and approximately 90% of the subretinal hemorrhage was removed. The patient had a fluid-air exchange performed. After the retina had been completely pneumatically reattached, there was a small and thin layer of blood along the superotemporal arcade, which could not be removed. Endolaser photocoagulation treatment was completed in the periphery and then around the retinal break and then around each of the retinotomy sites, taking care to remove the last of the preretinal and subretinal fluid prior to conclusion of laser treatment. The superonasal trocar was removed, and the site was rendered airtight, and then a gas-gas exchange was performed with 16% non-expansile mixture of C3F8. After this had been exchanged, the trocars were removed. The trocar sites were rendered airtight by pinching them with a pair of toothed forceps. Ancef solution was placed over the right eye. Erythromycin ointment and Cyclogyl drops were placed over the right eye, and a patch and shield were placed over the right eye. The patient was taken to the recovery room in good condition having tolerated the procedure well and without complication. The patient was given instructions to do no bending, stooping, lifting and to sleep over on his left side this evening. The patient will be seen in followup at [place] [facility] of the [facility] on 11/04/2019. COLE ZAFAR CD/Jessica_JERRY_01 Doc#: [id number] CC: Normal [facility] POCT Glucoseon 11-03-2019 Glucose [Mass/Vol] 104 mg/dL High 74 - 100 mg/dL [place], [place] Interpretation and review of laboratory results Abnormal [place] POTASSIUM (POC)on 11-03-2019 Potassium [Moles/Vol] 3.8 mmol/L 3.5 - 4.5 mmol/L [place], [place] CBC AUTO DIFFon 11-04-2017 Basophils Auto #/vol (Bld) 0.1 103/ul Normal 0.0-0.1 [facility] Comment on above: Performed By: #### C BC ####[facility] Bx[address]xroy[address] [place], [place] [address]Zqbdhx [place] Basophils/100 WBC Auto (Bld) 0.9 % Normal 0.2-2.0 [facility] Comment on above: Performed By: #### C BC ####[facility] Ehs[address]x9039 [place], [place] [address]Uioisl [place] Eosinophils 0.3 103/ul Normal 0.0-0.7 [facility] Comment on above: Performed By: #### C BC ####[facility] Asjvcdhtlx2714 [place], [place] [address]Jovcpd [place] Eosinophils/100 leukocytes 6.2 % Normal 0.9-7.0 [facility] Comment on above: Performed By: #### C BC ####[facility] [address] [place] [address]Miley Jarquin Erythrocyte distribution width Auto Ratio (RBC) 12.9 % Normal 11.0-15.0 [facility] Comment on above: Performed By: #### C BC ####[facility] Bjpqccbsmg44[address] [place] Erythrocytes (RBC) 4.70 106/ul Normal 4.70-6.10 [facility] Comment on above: Performed By: #### C BC ####[facility] Pvcslelusz[address] [place] [address] Hematocrit (HCT) 44.6 % Normal 42.0-54.0 [facility] Comment on above: Performed By: #### C BC ####[facility] Kaxpaoasle99[address] [place] Hemoglobin mass conc (Bld) 15.1 g/dL Normal 14.0-18.0 [facility] Comment on above: Performed By: #### C BC ####[facility] Wgj[address]ugjbam[address] [place] [address] IG # 0.03 10e3/ul Normal 0.00-0.03 [facility] Comment on above: Performed By: #### C BC ####[facility] Xjkgaikfea6[address] [place] IG % 0.5 % Normal 0.0-0.5 [facility] Comment on above: Performed By: #### C BC ####[facility] Aoutmyvkpu9881 [address] [place] Lymphocytes 1.0 103/ul Critically low 1.2-3.8 [facility] Comment on above: Performed By: #### C BC ####[facility] Vdvihynanq1085 [address] [place] Lymphocytes/100 leukocytes 17.3 % Critically low 20.5-60.0 [facility] Comment on above: Performed By: #### C BC ####[facility] Tikygtxdef16[address] [place] [id number] [place] MANUAL DIFF REQ NO Normal [facility] Comment on above: Performed By: #### C BC ####[facility] Zhrfcgziby7028 [place] [id number] [place] MCH 32.1 pg Normal 25.9-34.0 [facility] Comment on above: Performed By: #### C BC ####[facility] Gmlylwkuuv3866 [place] [id number] [place] MCHC mass conc (RBC) 33.9 g/dL Normal 29.9-35.2 [facility] Comment on above: Performed By: #### C BC ####[facility] [address] [place], [place] [address]Gerken [place] MCV 94.9 fL Critically high 80.0-94.0 [facility] Comment on above: Performed By: #### C BC ####[facility] B[address] [place], [place] [address]Ger[place] Monocytes 0.6 103/ul Normal 0.3-0.8 [facility] Comment on above: Performed By: #### C BC ####[facility] [address] [place] [address] [place] Monocytes/100 leukocytes 10.0 % Normal 1.7-12.0 [facility] Comment on above: Performed By: #### C BC ####[facility] [address]co[address] [place], [place] [address]Gerken [place] Neutrophils 3.6 103/ul Normal 1.4-6.5 [facility] Comment on above: Performed By: #### C BC ####[facility] [address] [place], [place] [address]Gerken [place] Neutrophils/100 WBC Auto (Bld) 65.1 % Normal 43.0-75.0 [facility] Comment on above: Performed By: #### C BC ####[facility] Geqzixwffc7110 [address] [place] Platelet mean volume (PMV) 9.5 fL Normal 9.5-13.5 [facility] Comment on above: Performed By: #### C BC ####[facility] Bcnpglglhd5719 [address] [place] Platelets 254 103/ul Normal 150-450 [facility] Comment on above: Performed By: #### C BC ####[facility] Ijecterybw3105 [place] [id number] [place] WBC (Leukocytes) 5.5 103/ul Normal 4.0-11.0 [facility] Comment on above: Performed By: #### C BC ####[facility] Umvfutewvj2127 [address] [place] LIPID PROFILEon 11-04-2017 CHOL-HDL RATIO NORM SEE BELOW Normal [facility] Comment on above: Result Comment: 3.3 - 4.4 LOW RISK 4.4 - 7.1 AVERAGE RISK 7.1 - 11.0 MODERATE RISK >11.0 HIGH RISK Performed By: #### C MP, LIPID, PSASC ####[facility] Riftqmwkvv1052 [address] [place] Cholesterol 175 mg/dL Normal <=200 [facility] Comment on above: Performed By: #### C MP, LIPID, PSASC ####[facility] Qqzeruemtb3983 [address] [place] Cholesterol to HDL Ratio 4.0 {ratio} Normal [facility] Comment on above: Performed By: #### C MP, LIPID, PSASC ####[facility] Zgpfotmscm6664 [place] [id number] [place] HDL Cholesterol > or = 60 mg/dl - LO W CARDIOVASCULAR RISK <40 mg/dl - HIGH CARDIOVASCULAR RISK Normal [facility] Comment on above: Performed By: #### C MP, LIPID, PSASC ####[facility] Cndgdbnvtm2933 [place] [id number] [place] HDL Cholesterol 49 mg/dL Normal [facility] Comment on above: Performed By: #### C MP, LIPID, PSASC ####[facility] Vxxegepykj4430 [address] [place] LDL Cholesterol SEE BELOW Normal [facility] Comment on above: Result Comment: <100 mg/dl OPTIMAL 100 - 129 mg/dl NEAR OR ABOVE OPTIMAL 130 - 159 mg/dl BORDERLINE HIGH 160 - 189 mg/dl HIGH >190 mg/dl VERY HIGH Performed By: #### C MP, LIPID, PSASC ####[facility] Rsinkvidlg1260 [address] [place] LDL Cholesterol 110.0 mg/dL Normal [facility] Comment on above: Performed By: #### C MP, LIPID, PSASC ####[facility] Dcsrckzjop3654 [address] [place] Triglyceride 77 mg/dL Normal <=150 [facility] Comment on above: Performed By: #### C MP, LIPID, PSASC ####[facility] Zyxyrooilu9402 [address] [place] VLDL CALC 15.0 mg/dL Normal [facility] Comment on above: Performed By: #### C MP, LIPID, PSASC ####[facility] Fijtpvqlvx8183 [address] [place] PROF 14(COMP METB)on 018 Alanine aminotransferase (ALT) 45 U/L Normal 21-72 [facility] Comment on above: Performed By: #### C MP, LIPID, PSASC ####[facility] Egakmilmcb4837 [address] [place] Albumin 4.3 g/dL Normal 3.5-5.0 [facility] Comment on above: Performed By: #### C MP, LIPID, PSASC ####[facility] Rgavdqhhpr5509 [address] [place] Albumin/Globulin Ratio 1.5 {ratio} Normal [facility] Comment on above: Performed By: #### C MP, LIPID, PSASC ####[facility] Wumzwhcnmw4648 [address] Alkaline phosphatase (ALP) 48 U/L Normal 38-126 [facility] Comment on above: Performed By: #### C MP, LIPID, PSASC ####[facility] Yplxeqxeia4426 [address] [place] Anion gap 12.1 mmol/L Normal [facility] Comment on above: Performed By: #### C MP, LIPID, PSASC ####[facility] Aqcqllhxsm3469 [address] [place] Aspartate aminotransferase (AST) 48 U/L Normal 17-59 [facility] Comment on above: Performed By: #### C MP, LIPID, PSASC ####[facility] Syizguseom9716 [address] [place] Bilirubin Ql (U) 0.7 mg/dL Normal 0.2-1.3 [facility] Comment on above: Performed By: #### C MP, LIPID, PSASC ####[facility] [address] [place] [address] BUN/Creatinine Ratio 20.5 mg/mg Normal [facility] Comment on above: Performed By: #### C MP, LIPID, PSASC ####[facility] [address] [place] [address] [place] Calcium 9.8 mg/dL Normal 8.4-10.2 [facility] Comment on above: Performed By: #### C MP, LIPID, PSASC ####[facility] [address] [place] [address] [place] Chloride 101 mmol/L Normal 98-107 [facility] Comment on above: Performed By: #### C MP, LIPID, PSASC ####[facility] Ggmpwskvtk0982 [address] [place] CO2 27.0 mmol/L Normal 22.0-30.0 [facility] Comment on above: Performed By: #### C MP, LIPID, PSASC ####[facility] [address] [place] [address] [place] Creatinine 0.83 mg/dL Normal 0.66-1.25 [facility] Comment on above: Performed By: #### C MP, LIPID, PSASC ####[facility] Zuqqgzhsed6605 [place] [id number] [place] eGFR (non-black) mL/min/{1.73_m2} Normal >=60 [facility] Comment on above: Performed By: #### C MP, LIPID, PSASC ####[facility] Tdcpnimebs9561 [address] [place] Globulin 2.8 g/dL Normal [facility] Comment on above: Performed By: #### C MP, LIPID, PSASC ####[facility] Clhztysosc8739 [address] [place] Glucose mass conc 86 mg/dL Normal 74-106 [facility] Comment on above: Performed By: #### C MP, LIPID, PSASC ####[facility] Qhhcplkffp4884 [address] [place] Potassium molar conc 3.6 mmol/L Normal 3.4-5.0 [facility] Comment on above: Performed By: #### C MP, LIPID, PSASC ####[facility] Ydglpatzjp7250 [address] [place] Protein 7.2 g/dL Normal 6.1-8.2 [facility] Comment on above: Performed By: #### C MP, LIPID, PSASC ####[facility] Vnpmtldqjp8884 [address] [place] Sodium 136 mmol/L Critically low 137-145 [facility] Comment on above: Performed By: #### C MP, LIPID, PSASC ####[facility] Zdgpykhufp8925 [address] [place] Urea nitrogen 17.0 mg/dL Normal 9.0-20.0 [facility] Comment on above: Performed By: #### C MP, LIPID, PSASC ####[facility] Fxlywaelad4959 [address] PSA SCREENINGon 11-04-2017 PSA 1.08 ng/mL Normal <=4.00 [facility] Comment on above: Performed By: #### C MP, LIPID, PSASC ####[facility] Ozlzgmzdzn7924 [place] [id number] CBC AUTO DIFFon 04-11-2017 Basophils Auto #/vol (Bld) 0.1 103/ul Normal 0.0-0.1 [facility] Comment on above: Performed By: #### C BC ####[facility] [address] [place] [address] [place] Basophils/100 WBC Auto (Bld) 0.8 % Normal 0.2-2.0 [facility] Comment on above: Performed By: #### C BC ####[facility] [address] [place] [address] [place] Eosinophils 0.5 103/ul Normal 0.0-0.7 [facility] Comment on above: Performed By: #### C BC ####[facility] [address] [place] [address] [place] Eosinophils/100 leukocytes 8.7 % Critically high 0.9-7.0 [facility] Comment on above: Performed By: #### C BC ####[facility] [address]qeb[address] [place] [address] [place] Erythrocyte distribution width Auto Ratio (RBC) 12.8 % Normal 11.0-15.0 [facility] Comment on above: Performed By: #### C BC ####[facility] [address]kv[address] [place] [address] [place] Erythrocytes (RBC) 4.88 106/ul Normal 4.70-6.10 [facility] Comment on above: Performed By: #### C BC ####[facility] Sux[address]excv[address] [place], [place] [address]ken [place] Hematocrit (HCT) 46.3 % Normal 42.0-54.0 [facility] Comment on above: Performed By: #### C BC ####[facility] [address]vx[address] [place] [address] [place] Hemoglobin mass conc (Bld) 15.9 g/dL Normal 14.0-18.0 [facility] Comment on above: Performed By: #### C BC ####[facility] Sokaznddvj1378 [address] [place] IG # 0.03 10e3/ul Normal 0.00-0.03 [facility] Comment on above: Performed By: #### C BC ####[facility] Qdaywqklsx4145 [address] [place] IG % 0.5 % Normal 0.0-0.5 [facility] Comment on above: Performed By: #### C BC ####[facility] Xcvxijtakc5681 [address] [place] Lymphocytes 1.1 103/ul Critically low 1.2-3.8 [facility] Comment on above: Performed By: #### C BC ####[facility] Ryfwprspln6704 [address] [place] Lymphocytes/100 leukocytes 17.0 % Critically low 20.5-60.0 [facility] Comment on above: Performed By: #### C BC ####[facility] Yxdmddreks4861 [address] [place] MANUAL DIFF REQ NO Normal [facility] Comment on above: Performed By: #### C BC ####[facility] Tutzwsbtca7572 [address] [place] MCH 32.6 pg Normal 25.9-34.0 [facility] Comment on above: Performed By: #### C BC ####[facility] Tgnlnghcwn5313 [address] [place] MCHC mass conc (RBC) 34.3 g/dL Normal 29.9-35.2 [facility] Comment on above: Performed By: #### C BC ####[facility] Jgreqywkey[address] [place] MCV 94.9 fL Critically high 80.0-94.0 The [facility] Comment on above: Performed By: #### C BC ####[facility] Bbsltgljfs4439 [place], [place] [address]Tyjsrp [place] Monocytes 0.5 103/ul Normal 0.3-0.8 [facility] Comment on above: Performed By: #### C BC ####[facility] Rjcvtjnsuf0884 [place], [place] [address]Wklwcq [place] Monocytes/100 leukocytes 7.4 % Normal 1.7-12.0 [facility] Comment on above: Performed By: #### C BC ####[facility] Bnkduhcgmr1854 [place], [place] [address]Jwjpsr [place] Neutrophils 4.1 103/ul Normal 1.4-6.5 [facility] Comment on above: Performed By: #### C BC ####[facility] O[address] [place], [place] [address]Gerken [place] Neutrophils/100 WBC Auto (Bld) 65.6 % Normal 43.0-75.0 [facility] Comment on above: Performed By: #### C BC ####[facility] [address] [place], [place] [address]Gershun Jarquin Platelet mean volume (PMV) 9.8 fL Normal 9.5-13.5 [facility] Comment on above: Performed By: #### C BC ####[facility] [address] [place], [place] [address]Gerken [place] Platelets 287 103/ul Normal 150-450 [facility] Comment on above: Performed By: #### C BC ####[facility] [address] [place], [place] [id number] [place] WBC (Leukocytes) 6.2 103/ul Normal 4.0-11.0 The [facility] Comment on above: Performed By: #### C BC ####[facility] [address] [place], [place] [address]Gerken [place] LIPID PROFILEon 04-11-2017 CHOL-HDL RATIO NORM SEE BELOW Normal The [facility] Comment on above: Result Comment: 3.3 - 4.4 LOW RISK 4.4 - 7.1 AVERAGE RISK 7.1 - 11.0 MODERATE RISK >11.0 HIGH RISK Performed By: #### C MP, LIPID ####[facility] Hzoqghbccn1002 [place], [place] [address]Zyrywg [place] Cholesterol 159 mg/dL Normal <=200 [facility] Comment on above: Performed By: #### C MP, LIPID ####[facility] Cndwgkryxg4120 [place], [place] [address]Gtnnrs [place] Cholesterol to HDL Ratio 3.0 {ratio} Normal [facility] Comment on above: Performed By: #### C MP, LIPID ####[facility] Ibbfbpyvqy7881 [place], [place] [address]Dtpnas [place] HDL Cholesterol 46 mg/dL Normal The [facility] Comment on above: Performed By: #### C MP, LIPID ####[facility] Dphrvkzvwn2823 [place], [place] [address]Ogpfzx [place] HDL Cholesterol > or = 60 mg/dl - LO W CARDIOVASCULAR RISK <40 mg/dl - HIGH CARDIOVASCULAR RISK Normal [facility] Comment on above: Performed By: #### C MP, LIPID ####[facility] Lwhdzdqbhn2268 [place], [place] [address]Edcdve [place] LDL Cholesterol 94.0 mg/dL Normal The [facility] Comment on above: Performed By: #### C MP, LIPID ####[facility] Rfcaejhqsf2895 [place], [place] [address]Weygis [place] LDL Cholesterol SEE BELOW Normal The [facility] Comment on above: Result Comment: <100 mg/dl OPTIMAL 100 - 129 mg/dl NEAR OR ABOVE OPTIMAL 130 - 159 mg/dl BORDERLINE HIGH 160 - 189 mg/dl HIGH >190 mg/dl VERY HIGH Performed By: #### C MP, LIPID ####[facility] Hjjmublrhy2766 [place], [place] [address]Qkkhfs [place] Triglyceride 94 mg/dL Normal <=150 [facility] Comment on above: Performed By: #### C MP, LIPID ####[facility] Ldeagwnsrc9129 [place], [place] [address]Vgdzgf [place] VLDL CALC 19.0 mg/dL Normal [facility] Comment on above: Performed By: #### C MP, LIPID ####[facility] [address] [place] [id number] [place] PROF 14(COMP METB)on 017 Alanine aminotransferase (ALT) 40 U/L Normal 21-72 [facility] Comment on above: Performed By: #### C MP, LIPID ####[facility] Itylaxsbhj1424 [place] [id number] [place] Albumin 4.1 g/dL Normal 3.5-5.0 [facility] Comment on above: Performed By: #### C MP, LIPID ####[facility] Xpkvxeeijk0[address] [place] Albumin/Globulin Ratio 1.4 {ratio} Normal [facility] Comment on above: Performed By: #### C MP, LIPID ####[facility] Lvoncxzulo5114 [place] [id number] [place] Alkaline phosphatase (ALP) 49 U/L Normal 38-126 [facility] Comment on above: Performed By: #### C MP, LIPID ####[facility] Edmpmkckoe4344 [place] [id number] [place] Anion gap 11.2 mmol/L Normal [facility] Comment on above: Performed By: #### C MP, LIPID ####[facility] Dzecffrbgt4254 [place] [phone] [place] Aspartate aminotransferase (AST) 66 U/L Critically high 17-59 [facility] Comment on above: Performed By: #### C MP, LIPID ####[facility] Hgflawyyoa5795 [place] [id number] [place] Bilirubin Ql (U) 0.4 mg/dL Normal 0.2-1.3 The [facility] Comment on above: Performed By: #### C MP, LIPID ####[facility] Vnlnilquiw2151 [place] [phone] [place] BUN/Creatinine Ratio 21.1 mg/mg Normal [facility] Comment on above: Performed By: #### C MP, LIPID ####[facility] [address]ymcpwwfdb3631 [place] [phone] [place] Calcium 9.6 mg/dL Normal 8.4-10.2 [facility] Comment on above: Performed By: #### C MP, LIPID ####[facility] Owuvthrfdg8475 [place] [address]Gerken [place] Chloride 108 mmol/L Critically high 98-107 [facility] Comment on above: Performed By: #### C MP, LIPID ####[facility] Bhuvxduejf7854 [place] [address]Gerken [place] CO2 26.0 mmol/L Normal 22.0-30.0 [facility] Comment on above: Performed By: #### C MP, LIPID ####[facility] Sgzocsbqfr[address] [place] Creatinine 0.97 mg/dL Normal 0.66-1.25 [facility] Comment on above: Performed By: #### C MP, LIPID ####[facility] Bgxjnsgmru7156 [address] [place] eGFR (non-black) mL/min/{1.73_m2} Normal >=60 Th [facility] Comment on above: Performed By: #### C MP, LIPID ####[facility] Msejhikclm[address] [place] Globulin 2.9 g/dL Normal [facility] Comment on above: Performed By: #### C MP, LIPID ####[facility] Cfzblshwyf0455 [place] [phone] [place] Glucose mass conc 91 mg/dL Normal 74-106 The [facility] Comment on above: Performed By: #### C MP, LIPID ####[facility] Pvcezljnxn02[address] [place] Potassium molar conc 3.7 mmol/L Normal 3.4-5.0 [facility] Comment on above: Performed By: #### C MP, LIPID ####[facility] [address]vff[address]vkpe3[address] [place] [address]Gerken [place] Protein 6.9 g/dL Normal 6.1-8.2 [facility] Comment on above: Performed By: #### C MP, LIPID ####[facility] Syzdnkcjnb2670 [place], [place] [address]Pwwfhi [place] Sodium 142 mmol/L Normal 137-145 [facility] Comment on above: Performed By: #### C MP, LIPID ####[facility] Hcpxuwfauw3909 [place], [place] [address]Jfdtkp [place] Urea nitrogen 20.0 mg/dL Normal 9.0-20.0 [facility] Comment on above: Performed By: #### C MP, LIPID ####[facility] Ejhhkydphc3203 [place], [place] [address]Ihmhmq [place] Vital Signs Date Time Vital Sign Value Performing Clinician Facility 05-15-2023 10:00-0500 Body height 172.72 cm Bianca Calvlinette Other [facility] Other 05-15-2023 10:00-0500 Body mass index (BMI) [Ratio] 26.91 kg/m2 Bianca Jacob Other [facility] Other 05-15-2023 10:00-0500 Body weight 80.29 kg Bianca Calvlinette Other [facility] Other 06-09-2020 10:45-0500 Body Temperature 97.2 [degF] [facility] [place] 06-09-2020 10:45-0500 BP Diastolic 84 mm[Hg] [facility] , [place] 06-09-2020 10:45-0500 BP Systolic 141 mm[Hg] [facility] , [place] 06-09-2020 10:45-0500 Pulse (Heart Rate) 56 /min [facility], [place] 06-09-2020 10:45-0500 Pulse Oximetry 99 % [facility] , [place] 06-09-2020 10:45-0500 Respiratory Rate 18 /min [facility] [place] 06-09-2020 08:09-0500 BMI (Body Mass Index) 26.76 kg/m2 [facility] [place] [place] 06-09-2020 08:09-0500 Body weight 79.83 kg Sarah Barajas [facility] , [place] Comment on above: patient states he weighed himself genesis Pereira 06-09-2020 08:09-0500 Height 172.7 cm [facility] [place] 01-26-2020 11:09-0400 Body Temperature 97.3 [degF] [facility] [place] 01-26-2020 11:09-0400 BP Diastolic 92 mm[Hg] [facility] [place] , [place] 01-26-2020 11:09-0400 BP Systolic 150 mm[Hg] [facility] [place] , [place] 01-26-2020 11:09-0400 Pulse (Heart Rate) 58 /min [facility] [place] 01-26-2020 11:09-0400 Pulse Oximetry 96 % [facility] [place] 01-26-2020 11:09-0400 Respiratory Rate 16 /min [facility] [place] 01-26-2020 07:25-0400 BMI (Body Mass Index) 27.88 kg/m2 [facility] [place] 01-26-2020 07:25-0400 Body weight 80.74 kg [facility] [place] 01-26-2020 07:25-0400 Height 170.2 cm [facility] [place] , [place] 12-10-2019 11:15-0400 BP Diastolic 97 mm[Hg] [facility] [place] , [place] 12-10-2019 11:15-0400 BP Systolic 143 mm[Hg] [facility] [place] , [place] 12-10-2019 11:15-0400 Pulse (Heart Rate) 54 /min [facility] [place] [place] 12-10-2019 11:15-0400 Pulse Oximetry 98 % [facility] [place] , [place] 12-10-2019 11:15-0400 Respiratory Rate 16 /min Sarah Knapp [facility], [place] 12-10-2019 10:45-0400 Body Temperature 97 [degF] Sarah Knapp [facility], [place] 12-10-2019 07:33-0400 BMI (Body Mass Index) 28.13 kg/m2 Sarah Knapp [facility], [place] 12-10-2019 07:33-0400 Body weight 83.92 kg Sarah Barajas [place], [place] 12-10-2019 07:33-0400 Height 172.7 cm Sarah Barajas [place], [place] 11-03-2019 08:50-0400 Body Temperature 96.8 [degF] [place] 11-03-2019 08:50-0400 BP Diastolic 89 mm[Hg] Cole [place], [place] 11-03-2019 08:50-0400 BP Systolic 135 mm[Hg] Cole [place], [place] 11-03-2019 08:50-0400 Pulse (Heart Rate) 58 /min Cole [place], [place] 11-03-2019 08:50-0400 Pulse Oximetry 95 % Cole [place], [place] 11-03-2019 08:50-0400 Respiratory Rate 16 /min [facility] [place] 11-03-2019 06:36-0400 BMI (Body Mass Index) 28.16 kg/m2 Cole [place], [place] 11-03-2019 06:36-0400 Body weight 84 kg [place] 11-03-2019 06:36-0400 Height 172.7 cm Cole [place] Encounters Encounter Date Encounter Type Care Provider Facility Start: 11-20-2023 End: 11-20-2023 ambulatory KRISTAL H TIMMIS Not Available Start: 11-13-2023 End: 11-13-2023 ambulatory [facility] Start: 11-13-2023 Encounter for genera l adult medical examination without abnormal findings [facility] Start: 10-07-2023 End: 10-07-2023 ambulatory KRISTAL H TIMMIS Not Available Start: 10-01-2023 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: [facility] Comment on above: Essential hypertensi on; Allergic rhinitis, unspecified seasonality, unspecified trigger; Fungal skin infection; Mixed hyperlipidemia Start: 09-18-2023 End: 09-18-2023 ambulatory FREDERIC A GIGI Not Available Start: 07-22-2023 [facility]phone [facility] Start: 06-14-2023 End: 06-14-2023 ambulatory Bianca James Other [facility] Other Start: 06-14-2023 Office outpatient vi sit 15 minutes Bianca James [facility] Start: 05-15-2023 Office outpatient ne w 30 minutes Bianca James [facility] Start: 05-15-2023 End: 05-15-2023 Patient encounter procedure MD Bianca James Work Phone: [facility] Start: 05-15-2023 End: 05-15-2023 [facility] Work Phone: Start: 06-09-2020 End: 06-09-2020 Patient encounter procedure SARAH BARAJAS [facility] Start: 06-09-2020 End: 06-09-2020 Subsequent hospital visit by physician Sarah Barajas Work Phone: [facility] Start: 06-06-2020 End: 06-11-2020 Patient encounter procedure [facility] Start: 06-06-2020 End: 06-10-2020 Subsequent hospital visit by physician Alberto Black19 [facility] Comment on above: Preoperative testing Start: 01-26-2020 End: 01-26-2020 Patient encounter procedure ERICA BUNDY [facility] Start: 01-26-2020 End: 01-26-2020 Subsequent hospital visit by physician Sarah Barajas Work Phone: [facility] Start: 01-22-2020 End: 01-27-2020 Patient encounter procedure [facility] Start: 01-22-2020 End: 01-26-2020 Subsequent hospital visit by physician Alberto Black19 Pat Screening Schedule [facility] Start: 12-10-2019 End: 12-10-2019 Patient encounter procedure ERICA BUNDY [facility] Start: 12-10-2019 End: 12-10-2019 Subsequent hospital visit by physician Sarah Barajas Work Phone: [facility] Start: 12-07-2019 End: 12-12-2019 Patient encounter procedure [facility] Start: 12-07-2019 End: 12-11-2019 Subsequent hospital visit by physician Alberto [email or web address] Pat Screening Schedule [facility] Start: 11-03-2019 End: 11-03-2019 Patient encounter procedure COLE ZAFAR [facility] Start: 11-03-2019 End: 11-03-2019 Subsequent hospital visit by physician Cole Zafar Work Phone: [facility] Start: 09-17-2019 Patient encounter status Marlen Starkeyt [facility] Start: 11-04-2017 End: 11-05-2017 [facility] Start: 04-11-2017 End: 04-12-2017 Ambulatory [facility] Facility:H1 Procedures Date Procedure Procedure Detail Performing Clinician Start: 05-15-2023 Plain X-ray of right wrist MD Bianca James Work Phone: Start: 05-14-2023 Adult depression scr eening assessment Marlen Schmidt [employer] Start: 11-03-2020 Colonoscopy Marlen mac [employer] Start: 06-09-2020 DISCHARGE PATIENT RIN BUNDY Start: 06-09-2020 ASSESS ERICA CA STILLO Start: 06-09-2020 BEDREST ERICA CA STILLO Start: 06-09-2020 Continuous pulse oximetry ERICA BUNDY Start: 06-09-2020 ENCOURAGE DEEP BREAT DAVID AND COUGHING ERICA BUNDY Start: 06-09-2020 INITIATE OXYGEN THER APY PROTOCOL ERICA BUNDY Start: 06-09-2020 NEURO/VASCULAR CHECKS V ALERIE BUNDY Start: 06-09-2020 NOTIFY PHYSICIAN (SPECIFY) ERICA BUNDY Start: 06-09-2020 NURSING COMMUNICATION V DEBBIERIKourtney STUARTBUNDY Start: 06-09-2020 REMOVE IV ERICA CA STILLO Start: 06-09-2020 VITAL SIGNS ERICA CA STILLO Start: 06-09-2020 INITIATE OXYGEN THER APY PROTOCOL ERICA BUNDY Start: 06-09-2020 NOTIFY PHYSICIAN (SPECIFY) ERICA BUNDY Start: 06-09-2020 VITAL SIGNS ERICA CA STILLO Start: 06-09-2020 CREATININE W/GFR POI NT OF CARE ERICA BUNDY Start: 06-09-2020 Gluc bld gluc mntr d ev cleared fda spec home use ERICA BUNDY Start: 06-09-2020 POC CHEM8 INCLUDES C ALC. ANION GAP ERICA BUNDY Start: 06-09-2020 CREATININE W/GFR POI NT OF CARE Sarah Barajas Work Phone: Start: 06-09-2020 Gluc bld gluc mntr d ev cleared fda spec home use Sarahhilario Griffinlsen Work Phone: Start: 06-06-2020 COVID-19 AMBULATORY FORD S LOJA Start: 06-06-2020 COVID-19 AMBULATORY [employer] Work Phone: Start: 01-26-2020 DISCHARGE PATIENT RIN BUNDY Start: 01-26-2020 Continuous pulse oximetry ERICAKourtney BUNDY Start: 01-26-2020 INCENTIVE SPIROMETRY RT ERICAKourtney BUNDY Start: 01-26-2020 INITIATE OXYGEN THER APY PROTOCOL ERICA BUNDY Start: 01-26-2020 ASSESS ERICA CA STILLO Start: 01-26-2020 BEDREST ERICA CA STILLO Start: 01-26-2020 ENCOURAGE DEEP BREAT DAVID AND COUGHING ERICA BUNDY Start: 01-26-2020 NEURO/VASCULAR CHECKS V ALERIE BUNDY Start: 01-26-2020 NOTIFY PHYSICIAN (SPECIFY) ERICA BUNDY Start: 01-26-2020 NURSING COMMUNICATION V DEBBIERIKourtney STUARTBUNDY Start: 01-26-2020 TELEMETRY MONITORING ROSA M BUNDY Start: 01-26-2020 VITAL SIGNS ERICA CA STILLO Start: 01-26-2020 CREATININE W/GFR POI NT OF CARE ERICA BUNDY Start: 01-26-2020 Gluc bld gluc mntr d ev cleared fda spec home use ERICA BUNDY Start: 01-26-2020 POC CHEM8 INCLUDES C ALC. ANION GAP ERICA BUNDY Start: 01-26-2020 CREATININE W/GFR POI NT OF CARE Sarah Barajas Work Phone: Start: 01-26-2020 Gluc bld gluc mntr d ev cleared fda spec home use Sarah Mai [employer] Work Phone: Start: 01-22-2020 COVID-19 DENIS JOYCE TONEY Start: 01-22-2020 COVID Denis Orozcou regui Work Phone: Start: 12-10-2019 DISCHARGE PATIENT RIN BUNDY Start: 12-10-2019 BEDREST ERICA CA STILLO Start: 12-10-2019 Continuous pulse oximetry ERICA BUNDY Start: 12-10-2019 INITIATE OXYGEN THER APY PROTOCOL ERICA BUNDY Start: 12-10-2019 NEURO/VASCULAR CHECKS V DEBBIEMARKELKourtney BUNDY Start: 12-10-2019 NOTIFY PHYSICIAN (SPECIFY) ERICA BUNDY Start: 12-10-2019 NURSING COMMUNICATION Fili BUNDY Start: 12-10-2019 VITAL SIGNS ERICA CA STILLO Start: 12-10-2019 Ecg routine ecg w/le ast 12 lds w/i&r ERICAKourtney BUNDY Start: 12-07-2019 COVID-19 DENIS MENDEZI Start: 12-07-2019 COVID-19 Denis Orozcou regui Work Phone: Start: 11-03-2019 BEDREST ERICA CA STILLO Start: 11-03-2019 Continuous pulse oximetry ERICA BUNDY Start: 11-03-2019 ENCOURAGE DEEP BREAT DAVID AND COUGHING ERICA BUNDY Start: 11-03-2019 NOTIFY PHYSICIAN (SPECIFY) ERICA BUNDY Start: 11-03-2019 NURSING COMMUNICATION V ROBBIE BUNDY Start: 11-03-2019 DISCHARGE PATIENT RIN BUNDY Start: 11-03-2019 VITAL SIGNS ERICA MONZON Start: 11-03-2019 INITIATE OXYGEN THER APY PROTOCOL ERICA BUNDY Start: 11-03-2019 CREATININE W/GFR POI NT OF CARE ERICA BUNDY Start: 11-03-2019 Potassium serum plasma/whole blood ERICA BUNDY Start: 11-03-2019 Gluc bld gluc mntr d ev cleared fda spec home use ERICA BUNDY Start: 11-03-2019 INITIATE OXYGEN THER APY PROTOCOL ERICA BUNDY Start: 11-03-2019 NOTIFY PHYSICIAN (SPECIFY) ERICA BUNDY Start: 11-03-2019 PULSE OXIMETRY SPOT CHECK ERICA BUNDY Start: 11-03-2019 VITAL SIGNS ERICA ARMSTRONGO Start: 11-03-2019 CREATININE W/GFR POI NT OF CARE Cole Zafar Work Phone: Start: 11-03-2019 Gluc bld gluc mntr d ev cleared fda spec home use Cole Zafar Work Phone: Start: 11-03-2019 Potassium [Moles/Vol] C lissette Coker [employer] Work Phone: Plan of Treatment Date Care Activity Detail Author Start: 11-03-2030 Screening for malign ant neoplasm of colon Colonoscopy [facility] Start: 05-07-2028 DTaP,Tdap and Td Vac cines (2 - Td or Tdap) DTaP,Tdap and Td Vaccines (2 - Td or Tdap) [facility] Start: 05-07-2028 DTaP/Tdap/Td vaccine (2 - Td) DTaP/Tdap/Td vaccine (2 - Td) [facility] [place] Start: 05-14-2024 Adult BMI Follow Up Plan Adult BMI Follow Up Plan [facility] Start: 05-14-2024 Adult BMI Screening Adult BMI Screen ing [facility] Start: 05-14-2024 Depression Screening Depression Scre ening [facility] Start: 05-14-2024 Tobacco Screening Tobacco Screening [facility] Start: 11-13-2023 End: 11-13-2023 Patient encounter procedure 11/13/2023 8:00 AM EDT Office Visit [facility] [address] [place] [id number] Erica Bundy, QUOTER[employer]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 [address] [place] [address] [facility] Start: 11-07-2023 Fall Risk Screening Fall Risk Screen ing [facility] Start: 11-07-2023 Medicare Annual Well ness Visit Medicare Annual Wellness Visit [facility] Start: 07-31-2023 Administration of varicella zoster vaccine Zoster (Shingles) Vaccine (2 of 2) [facility] Start: 05-31-2023 COVID-19 Vaccine ( season) COVID-19 Vaccine ( season) [facility] Start: 06-09-2021 Creatinine measurement Creatinine mo [place], [place] Start: 01-25-2021 Creatinine measurement Creatinine mo [place] Start: 11-02-2020 Creatinine measurement Creatinine mo [place] Start: 11-02-2020 Potassium monitoring Potassium monit oring [place], [place] Start: 03-08-2020 Influenza vaccination Flu vaccine (# 1) [place], [place] Start: 2018 Pneumococcal 65+ yea rs Vaccine (1 of 1 - PPSV23) Pneumococcal 65+ years Vaccine (1 of 1 - PPSV23) [place], [place] Start: 2003 Screening for malign ant neoplasm of colon Colon cancer screen colonoscopy [place], [place] Start: 2003 Shingles Vaccine (1 of 2) Hussein gles Vaccine (1 of 2) [place], [place] Start: 1993 Diabetes screen Diabetes screen [place], [place] Start: 1963 Lipid panel Lipid screen [place], [place] Start: 1953 Hepatitis C screening Hepatitis C sc reen [place] End: 11-03-2019 Blood glucose - POCT Blood glucose - POCT Point of Care Testing Routine One Time for 1 Occurrences starting 11/03/2019 until 11/03/2019 [facility] [place] Comment on above: One Time for 1 Occur rences starting 11/03/2019 until 11/03/2019 EKG 12 Lead EKG 12 Lead ECG Routine 12/10/2019 7:30 AM EDT [facility] [place] Incentive spirometry Incentive s pirometry Respiratory Care Routine Every 2hr while awake until discontinued starting 01/26/2020 [facility] [place] Comment on above: Every 2hr while awak e until discontinued starting 01/26/2020 Initiate Oxygen Ther apy Protocol [facility] [place] Comment on above: Daily until disconti nued starting 11/03/2019 Daily until disconti nued starting 12/10/2019 Daily until disconti nued starting 01/26/2020 Oxygen therapy [[facility] Data Set] Initiate Oxygen Therapy Protocol Respiratory Care Routine Daily until discontinued starting 06/09/2020 [facility] Comment on above: Daily until disconti nued starting 06/09/2020 Phase I & II - meter ed glucose [facility] [place] Comment on above: As Needed until disc ontinued starting 11/03/2019 As Needed until disc ontinued starting 12/10/2019 As Needed until disc ontinued starting 01/26/2020 As Needed until disc ontinued starting 06/09/2020 End: 01-26-2020 POC CHEM8 INCLUDES CALC. ANION GAP POC CHEM8 INCLUDES CALC. ANION GAP Point of Care Testing Routine One Time for 1 Occurrences starting 01/26/2020 until 01/26/2020 [facility] Comment on above: One Time for 1 Occur rences starting 01/26/2020 until 01/26/2020 End: 06-09-2020 POC CHEM8 INCLUDES CALC. ANION GAP POC CHEM8 INCLUDES CALC. ANION GAP Point of Care Testing STAT One Time for 1 Occurrences starting 06/09/2020 until 06/09/2020 [facility] Comment on above: One Time for 1 Occur rences starting 06/09/2020 until 06/09/2020 End: 11-03-2019 Pulse Oximetry Spot Check Pulse Oximetry Spot Check Respiratory Care Routine One Time for 1 Occurrences starting 11/03/2019 until 11/03/2019 [facility] [place] Comment on above: One Time for 1 Occur rences starting 11/03/2019 until 11/03/2019 Immunizations Immunization Date Immunization Notes Care Provider Muriel bruno 08-07-2023 zoster vaccine recombinant Erica ALVAREZ Work Phone: [facility] 06-05-2023 zoster vaccine recombinant Marlen Schmidt [facility] 06-05-2023 zoster vaccine, unspecified formulation Marlenmarcie Schmidt [facility] 04-08-2023 influenza, high dose seasonal, preservative-free Marlen Roxana [facility] 04-05-2023 COVID-19, mRNA, LNP- S, PF, 30mcg/0.3mL Dose [facility]ox[facility] [facility] 08-01[facility]2022 Covid-19, Mrna, Lnp- s, Bivalent, Pf, 30mcg/0.3 ml [facility] 05-03-2022 Influenza Vaccine, Quadrivalent, Adjuvanted Marlen [facility] 05-08-2021 COVID-19, mRNA, LNP- S, PF, 30mcg/0.3mL Dose Marlen [facility] 05-08-2021 SARS-COV-2 (COVID-19 ) Vaccine, Unspecified Marlen [facility] 04-06-2021 Influenza, High-dose , Quadrivalent Marlen [facility] 04-20-2020 Influenza, High-dose , Quadrivalent Marlen [facility] 05-06-2019 influenza, injectabl e, quadrivalent, preservative free Marlen [facility] 05-07-2018 tetanus toxoid, redu saroj diphtheria toxoid, and acellular pertussis vaccine, adsorbed [facility] 04-17-2018 influenza, live, intranasal, quadrivalent [facility] 04-16-2018 influenza virus vaccine, unspecified formulation [facility] 04-07-2015 influenza virus vaccine, unspecified formulation [facility] 04-07-2015 influenza, injectabl e, madin jose canine kidney, preservative free Marlen Mendezllett [employer] Payers Date Payer Category Payer Self-pay 2019 Private Health Insurance [facility] CARE MEDICARE SUPP [id number] 2019-Present [phone] [address] [place] [address] [id number] 2019 Private Health Insurance [id number] 2019 Private Health Insurance [facility] SUPPLEMENT [id number] 2019-Present [phone] [address] [place] [address] [id number] 2018 Medicare xxxxxxxxxxx [id number] 2018 Medicare MEDICARE MEDICAR E PART A AND B [id number] 2018-Present [phone] [address] [address] [place] [address] [id number] 2018 Medicare [id number] 2018 Medicare MEDICARE MEDICAR E PART A & B [id number] 2018-Present [phone] [address] [place] [address] [id number] 1959 Unknown [id number] 1953 Unknown [id number] [id number] 1953 Unknown [id number] [id number] .175 1953 Unknown [id number] [id number] .175 1953 Unknown [id number] 2.16.840.1.221933.3.579.2 .175 1953 Unknown [id number] 2.16.840.1.616843.3.579.2 .173 1953 Unknown [id number] [id number] .173 1953 Unknown [id number] [id number] .173 1953 Unknown [id number] [id number] .1286 1953 Unknown [id number] 2.16.840.1.016324.3.579.2 .1259 1953 Unknown [id number] 2.16.840.1.239782.3.579.2 .1259 1953 Unknown [id number] [id number] .1259 Unknown [id number] .531 Social History Date Type Detail Facility Start: 06-12-2018 End: 11-03-2019 Tobacco smoking status NHIS Never smoker [place] Start: 11-03-2019 End: 05-14-2023 Alcohol intake Current drinker of alcohol (finding) [place] Sex Assigned At Not on file [place] Start: 12-07-2019 Alcohol Comment weekends only [place] Exposure to SARS-CoV -2 (event) Unable to assess [place] Start: 06-12-2018 End: 01-26-2020 Tobacco use and exposure Never used [employer] [place] Exposure to SARS-CoV -2 (event) Not sure [employer] [place], [place] Start: 1955 Sex Assigned At Male [facility] Start: 11-13-2020 End: 05-14-2023 Sex Assigned At [facility] Start: 11-13-2020 End: 05-14-2023 Alcohol intake [facility] Do you belong to any clubs or organizations such as yazidi groups, unions, [employer] or athletic groups, or school groups? No [facility] Are you now , , , , never or living with a partner? [facility] How often to you hav e a drink containing alcohol? 2-4 times a month [facility] How many standard dr inks containing alcohol do you have on a typical day? 1 or 2 [facility] How often do you hav e 6 or more drinks on 1 occasion? Never [facility] How hard is it for y ou to pay for the very basics like food, housing, medical care, and heating Not hard at all [facility] Do you feel stress - tense, restless, nervous, or anxious, or unable to sleep at night because your mind is troubled all the time - these days [OSQ] Only a little [facility] Start: 11-13-2020 Education 21 [facility] Start: 10-27-2020 Alcohol Comment occassional [facility] Start: 03-17-2020 Gender identity Identifies as male gender (finding) [facility] Start: 03-17-2020 Sexual orientation Heterosexual (finding) [facility] Medical Equipment Procedure Code Equipment Code Equipment Origin al Text Equipment Identifier Dates Solution Surg Fl uid Silikon 1000 [id number] Start: 12-10-2019 Solution Surg Fl uid Silikon 1000 [id number] Start: 01-26-2020 Solution Surg Fl uid Silikon 1000 [id number] Start: 01-26-2020 Solution Surg Fl uid Silikon 1000 [id number] Start: 06-09-2020 Lens Iol Ultrase rt 20.5d - [id number] - [id number] Start: 08-04-2020 Clinical Notes 05-15-2023 to 10-01-2023 Telephone Encounter - Yasmin Vickers - 10/01/2023 10:46 AM EDTTelephone Encounter - Yasmin Vickers - 10/01/2023 10:46 AM EDTTelephone Encounter - Marlen Schmidt CMA - 07/22/2023 11:58 AM EST Note Date & Type Note Facility 10-01-2023 Miscellaneous Notes Formattin g of this note might be different from the original. Patient is switching pharmacy [facility] documented in this encounter [facility] 10-01-2023 Telephone encount er Note Patient is switching pharmacy please [facility] 07-22-2023 Miscellaneous Notes Formattin g of this note might be different from the original. Patient called and stated that they both went to get hearing aids and the disability hearing officer stated that he believed that her needs tubes in his ears. He needs a referral to Dr. Akins done documented in this encounter [facility] 07-22-2023 Telephone encount er Note Patient called and stated that they both went to get hearing aids and the disability hearing officer stated that he believed that her needs tubes in his ears. He needs a referral to Dr. 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 Patient would like to hold off on injections today. Patient is to continue with bracing and topical Voltaren Gel. Patient can call the office whenever for a wrist injection. 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 We discussed treatment options such as topical Voltaren Gel, occupational therapy for pain control and bracing options, cortisone injections for pain relief, and surgical treatment options. We discussed a wrist fusion with the patient if he can no longer live with the pain. He has elected for wrist bracing today as well as the topical medication. He will consider cortisone injection in the future if pain persists. [facility] Other Evaluation noteNo assessment information available [facility] Work Phone: Evaluation note* Diagnosis Other specified hearing loss of both ears- Primary documented in this encounter [facility]* Diagnosis Essential hypertension Unspecified essential hypertension Allergic rhinitis, unspecified seasonality, unspecified trigger Fungal skin infection Dermatophytosis of the body Mixed hyperlipidemia documented in this encounter [facility] general Narrative - Reported* Type Description Date Medical History hypertension Surgical History right shoulder rotator cuff rep air 2012 Surgical History left shoulder rotator cuff repa ir 2015 Surgical History right eye detached retina 2019 Surgical History lithotripsy Hospitalization History see above [facility] Other InstructionsNot on filedocumented in this encounter [facility]ructionsNot on filedocumented in this encounter [facility] for referral (narrative)* Consultation (Routine) - Pending Review Specialty Diagnoses / Procedures Referred By Contac t Referred To Contact Otolaryngology Diagnoses Other specified hearing loss of both ears Erica Bundy APRN-PUMPING SUPERVISOR [address] [place] [address] Kristal Akins MD [address] [place] [address] Referral ID Status Reason Start Date Expiration Date Visits Requested Visits Authorized [id number] Pending Review Specialty Services Required 07/22/2023 07/21/2024 1 1 [facility] Summary Purpose Family History No Family History Records FoundNo Family History Records FoundNo Family History Records FoundNo Family History Records FoundNo Family History Records FoundNo Family History Records Found Advance Directives No Advanced Directives Records FoundDocuments on File Type Date Recorded 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 Advance Directives and Living Will Power of Strategy Lead Documents on File Type Date Recorded 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 Advance Directives and Living Will Power of Strategy Lead Documents on File Type Date Recorded 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 ACP-Advance Directive ACP-Power of Strategy Lead Documents on File Type Date Recorded 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 No alcoholic beverages, no driving or operating machinery, no making important decisions for 24 hours. You may have a normal diet but should eat lightly day of surgery. Drink plenty of fluids. Urinate within 8 hours after surgery, if unable to urinate call your doctor documented in this encounter* Instructions* Eileen Dowell, RN - 01/26/2020 No alcoholic beverages, no driving or operating machinery, no making important decisions for 24 hours. You may have a normal diet but should eat lightly day of surgery. Drink plenty of fluids. Urinate within 8 hours after surgery, if unable to urinate call your doctor documented in this encounter* Instructions* Alyx Alford RN - 06/09/2020 See attached instructions No alcoholic beverages, no driving or operating machinery, no making important decisions for 24 hours. You may have a normal diet but should eat lightly day of surgery. Drink plenty of fluids. Urinate within 8 hours after surgery, if unable to urinate call your doctor documented in this encounter History of Present Illness * Donya Mcgowan RN - 11/03/2019 8:47 AM EDT VERBALIZED UNDERSTANDING OF DISCHARGE INSTRUCTIONS DR RAMIREZ CALLED FOR SIGN OUT documented in this encounter* Ephraim Tamez, LAURIE - 12/10/2019 11:17 AM EDT Discharge instructions gone over with pt/, eye kit sent, verbalizes understanding. documented in this encounter Assessments Diagnosis Retinal detachment of right eye with retinal break Retinal detachment with retinal defect, unspecified Vitreous hemorrhage, right (HCC) Diagnosis Traction retinal detachment involving macula, right Diagnosis Preoperative testing Preoperative examination, unspecified Additional Source Comments (unrecognized sect ion and content) No Status Records FoundNo Status Records FoundNo Status Records FoundNo Status Records FoundNo Status Records FoundNo Status Records Found INFORMATION SOURCE (unrecogn ized section and content) DATE CREATED AUTHOR 12/26/2017 [facility] DATE CREATED AUTHOR AUTHOR'S ORGANIZ ATION 06/09/2020 [facility] DATE CREATED AUTHOR AUTHOR'S ORGANIZ ATION 06/11/2020 [facility] DATE CREATED AUTHOR AUTHOR'S ORGANIZ ATION 11/14/2023 [facility] DATE CREATED AUTHOR AUTHOR'S ORGANIZ ATION 11/22/2023 [facility] DATE CREATED AUTHOR AUTHOR'S ORGANIZ ATION 12/18/2023 [facility] Reason for Visit (unrecogniz ed section and content) Status Reason Specialty Diagnoses / Procedures Referre d By Contact Referred To Contact Diagnoses 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 TRACTION RETINAL DETACHMENT RIGHT EYE Procedures OR REPAIR COMPLEX RETINA DETACH VITRECTOMY & MEMB PEEL VITRECTOMY 23 GAUGE, MEMBRANE PEELING, LASER, POSSIBLE SILICONE INJECTION Sarah Barajas MD [address] [place] [address], [address] [place] [address] [facility] Status Reason Specialty Diagnoses / Procedures Referre d By Contact Referred To Contact Diagnoses Retinal detachment Vitreous hemorrhage, right eye RETINAL DETACHMENT WITH PROLIFERITIVE VITREAL RETINOPATHY Procedures OR REPAIR COMPLEX RETINA DETACH VITRECTOMY & MEMB PEEL VITRECTOMY 23 GAUGE, MEMBRANE PEEL, SILICONE INJECTION Sarah Barajas MD [address] [place] [address], [address] [place] [address] [facility] Status Reason Specialty Diagnoses / Procedures Referre d By Contact Referred To Contact Diagnoses 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 Procedures OR VITRECTOMY,MECHANICAL VITRECTOMY 23 GAUGE, REMOVAL SILICONE OIL Sarah Barajas MD [address] [place] [address], [address] [place] [address] [facility] Reason Onset Date Comments Med Refill 10/01/2023 Care Teams (unrecognized sec tion and content) Team Status: Inactive Member Role Status Dates Bianca James MD Attending Provider Active [employer] Head Assistant Relationship Specialty Start Date End Date Erica Bundy, QUOTER-PUMPING SUPERVISOR [address] [place] [address] PCP - General Family Medicine 06/12/18 [employer] Head Assistant Relationship Specialty Start Date End Date Erica Bundy QUOTER-PUMPING SUPERVISOR [address] [place] [address] PCP - General Family Medicine 06/12/18 Goals (unrecognized section and content) Goals may be documented in a n alternate sectionNo InformationNo InformationNot on filedocumented as of this encounterNot on filedocumented as of this encounter FOR RECORDS PERTAINING TO PATIENTS WHO ARE OR HAVE BEEN ENROLLED IN A CHEMICAL DEPENDENCY/SUBSTANCEABUSE PROGRAM, SOME INFORMATION MAY BE OMITTED. This clinical summary was aggregated from multiple sources. Caution should be exercised in using it in the provision of clinical care. This summary normalizes information from multiple sources, and as a consequence, information in this document may materially change the coding, format and clinical context of patient data. In addition, data may be omitted in some cases. CLINICAL DECISIONS SHOULD BE BASED ON THE PRIMARY CLINICAL RECORDS. [employer] provides no warranty or guarantee of the accuracy or completeness of information in this document.
[2023-12-31] MEDS: LACTATED RINGER'S SOLUTION 1,000 ML 50 ML IV (11:28)
== END 2023-12-31 13:31 | disposition home or self-care (01) ==
PROVIDERS: PCP Nurse Practitioner; Visit Provider Otolaryngology
PROC: (CPT 69436; principal; 2023-12-31 13:00)
DX: H69.81 Other specified disorders of Eustachian tube, right ear (principal); Z86.74 Personal history of sudden cardiac arrest; E78.5 Hyperlipidemia, unspecified; I10 Essential (primary) hypertension; K21.9 Gastro-esophageal reflux disease without esophagitis; Z87.442 Personal history of urinary calculi
CPT/HCPCS: 69436; 36415; J1100; J2405; J2704; J3010